=== PATIENT | male | born 2000 | race Caucasian/White ===

== ENCOUNTER 2022-04-22 09:43 | Emergency (ER) | payer BC, OTHER ==
[~2022-04-22] VITALS: Ht 177.8 cm; Wt 88.5 kg
[2022-04-22 09:46] VITALS: BP 123/70
--- NOTE | 2022-04-22 09:51 | NUR ---
21 y/o male, c/o productive cough with some periods of sob. denies any sick contacts at home. 4/10 chest pain from cough. a&ox4, ambulates with steady gait. lung crackles bl, heart sounds regular and even. pmh: denies allergy: penicillin med: denies
--- NOTE | 2022-04-22 09:55 | NUR ---
covid and flu swabbed at this time
[2022-04-22] MEDS ORDERED: PROM118S5 PO (11:48)
[2022-04-22] MEDS ORDERED: IBUP-2213 PO (11:48)
--- NOTE | 2022-04-22 12:02 | NUR ---
pt name called for dx, no answer at this time
--- NOTE | 2022-04-22 12:13 | NUR ---
Patient discharged with v/s stable. Written and verbal after care instructions given and explained. Patient alert, oriented and verbalized understanding of instructions. Ambulatory with steady gait. All questions addressed prior to discharge. ID band removed. Patient advised to follow up with PMD. Rx of ibuprofen, promethazine (sent) given. Patient educated on indication of medication including possible reaction and side effects. Opportunity to ask questions provided and answered. copy of labs given
[2022-04-22 12:14] VITALS: BP 123/70
== END 2022-04-22 12:13 | disposition home or self-care (01) ==
LOC: MED 09:43
DX: J10.1 Influenza due to other identified influenza virus with other respiratory manifestations (principal); Z20.822 Contact with and (suspected) exposure to COVID-19; Z88.0 Allergy status to penicillin
CPT/HCPCS: 99283